=== PATIENT | male | born 1955 | race Two or more races ===

== ENCOUNTER 2019-08-06 09:40 | Inpatient (IN) | payer OTHER ==
[~2019-08-06] VITALS: Ht 177.8 cm; Wt 80.8 kg
[2019-08-06] MEDS ORDERED: SODIUM CHLORIDE 0.9% 1,000 ML IV ONE ×2 (10:58)
[2019-08-06 11:11] LABS: Urine Bacteria NONE SEEN /hpf (None Seen); Urine Blood Negative /uL (Negative); Urine Mucus FEW (None Seen); Urine Specific Gravity 1.016 (1.001-1.035); Urine WBC 3 /hpf (0 - 3)
[2019-08-06 11:36] LABS: Basophils # (auto) 0 10 ^3/uL (0-0.2); Basophils % (auto) 0.2 % (0.0-2.0); Eosinophils # (auto) 0 10 ^3/uL (0-0.8); Eosinophils % (auto) 0.3 % (0.0-7.0); Hematocrit 43.4 % (41.0-53.0); Hemoglobin 14.6 g/dL (13.5-17.5); Lymphocytes # (auto) 0.9 10 ^3/uL (0.4-5.4); Lymphocytes % (auto) 7.1 % (10.0-50.0); Mean Corpuscular Hemoglobin 29.1 pg (28.0-32.0); Mean Corpuscular Hgb Conc. 33.7 g/dL (32.0-36.0); Mean Corpuscular Volume 86.2 fL (80.0-100.0); Monocytes # (auto) 0.3 10 ^3/uL (0-1.3); Monocytes % (auto) 2.9 % (0.0-12.0); Neutrophils # (auto) 10.8 10 ^3/uL (1.6-8.6); Neutrophils % (auto) 89.5 % (37.0-80.0); Platelet Count (auto) 183 10^3/uL (140-450); Red Blood Cells 5.03 10^6/uL (4.5-5.90); Red Cell Distribution Width 12.8 % (11.8-14.3); White Blood Cell 12.1 10^3/uL (4.4-10.8)
[2019-08-06 11:55] LABS: Albumin 3.6 g/dL (3.4-5.0); Anion Gap 7 (5-15); Blood Urea Nitrogen 11 mg/dL (7-18); Calcium 7.9 mg/dL (8.5-10.1); Carbon Dioxide 25 mmol/L (21-32); Chloride 105 mmol/L (98-107); Glucose 206 mg/dL (74-106); Potassium 3.5 mmol/L (3.5-5.1); Sodium 137 mmol/L (136-145)
[2019-08-06] MEDS ORDERED: AZITHROMYCIN 500MG/ 250ML 250 ML IV ONE (12:00)
[2019-08-06] MEDS ORDERED: cefTRIAXone 1GM/50ML D5W 50 ML IV ONE (12:00)
[2019-08-06 12:06] LABS: Alanine Aminotransferase 32 U/L (16-61); Alkaline Phosphatase 75 U/L (45-117); Aspartate Aminotransferase 14 U/L (15-37); BUN/Creatinine Ratio 15.5; Bilirubin, Total 0.4 mg/dL (0.2-1.0); GFR African American 144 mL/min; GFR Non-African American 119 mL/min; Total Protein 7.3 g/dL (6.4-8.2)
[2019-08-06] MEDS ORDERED: NITROGLYCERIN 0.4 MG SL TAB SL PRN (13:15)
[2019-08-06] MEDS ORDERED: ACETAMINOPHEN 500 MG TAB PO PRN (13:15)
[2019-08-06] MEDS ORDERED: DEXTROSE (50%) 50ML SYRG IV PRN (13:15)
[2019-08-06] MEDS ORDERED: ONDANSETRON HCL 4 MG/2 ML VIAL IV PRN (13:15)
[2019-08-06] MEDS ORDERED: HYDROcodone-ACET 5/325MG TAB PO PRN (13:15)
[2019-08-06] MEDS ORDERED: MORPHINE SULF INJ 2 MG/ML SYRINGE 1ML IV PRN ×2 (13:15)
[2019-08-06 13:44] LABS: CRP High Sensitivity 0.05 mg/dL (< 0.3)
[2019-08-06 14:00] VITALS: BP 150/81
[2019-08-06] MEDS: SODIUM CHLORIDE 0.9% 1,000 ML IV SCH (14:00)
--- NOTE | 2019-08-06 17:08 | NUR ---
Patient arrived from ER. Alert and oriented. patient oriented to room and call light.
[2019-08-06] MEDS: ACCU-CHEK COMFORT CURVE STRIP VI SCH ×2 (17:19→21:41)
[2019-08-06] MEDS: InsuLIN REG 1unit/0.01ml Soln (100units/ml) SC SCH ×2 (17:20→21:40)
[2019-08-06 17:29] VITALS: BP 150/81
[2019-08-06] MEDS: IPRATROPIUM BROM 0.5 MG/2.5ML INH SOL NEB SCH (18:29)
[2019-08-06] MEDS: ALBUTEROL SULF 2.5 MG/0.5ML(0.5%) NEB SOLN NEB SCH (18:29)
--- NOTE | 2019-08-06 19:40 | NUR ---
Opening Shift Note Assumed care of patient, awake and alert x4. No S/S of distress/SOB or pain. Instructed on POC and to call for assist PRN. Call light is within reach, side rails up x2, bed is in the lowest position. Will continue to monitor for changes Q1hr and PRN.
[2019-08-06 22:00] VITALS: BP 148/78
[2019-08-06] MEDS ORDERED: ATORVASTATIN 20 MG TAB PO SCH (22:00)
[2019-08-07] MEDS: SODIUM CHLORIDE 0.9% 1,000 ML IV SCH ×2 (00:48→09:03)
[2019-08-07 05:00] VITALS: BP 153/85
[2019-08-07] MEDS: InsuLIN REG 1unit/0.01ml Soln (100units/ml) SC SCH ×2 (06:29→11:51)
[2019-08-07] MEDS: ACCU-CHEK COMFORT CURVE STRIP VI SCH ×2 (06:31→11:31)
[2019-08-07] MEDS: IPRATROPIUM BROM 0.5 MG/2.5ML INH SOL NEB SCH ×3 (06:35→12:00)
[2019-08-07] MEDS: ALBUTEROL SULF 2.5 MG/0.5ML(0.5%) NEB SOLN NEB SCH ×3 (06:35→12:00)
--- NOTE | 2019-08-07 06:37 | NUR ---
RT NOTE: PT. REFUSED BREATHING TX. AT THIS TIME. PT. STATES HE DOESN'T FEEL LIKE HE NEEDS IT AND THAT WHEN HE TOOK THE BREATHING TX. YESTERDAY HE FELT LIKE IT WAS HARDER FOR HIM TO BREATH. NO SIGNS OF RESPIRATORY DISTRESS AND PT. DENIES ANY SOB. PT. HR 74, RR 18, POX 97% R/A. PT. AWARE OF TIME OF NEXT SCHEDULED BREATHING TX.
[2019-08-07 07:44] LABS: Basophils # (auto) 0 10 ^3/uL (0-0.2); Basophils % (auto) 0.4 % (0.0-2.0); Eosinophils # (auto) 0.1 10 ^3/uL (0-0.8); Lymphocytes # (auto) 1.4 10 ^3/uL (0.4-5.4); Mean Corpuscular Hemoglobin 29.4 pg (28.0-32.0); Mean Corpuscular Hgb Conc. 34.1 g/dL (32.0-36.0); Monocytes # (auto) 0.3 10 ^3/uL (0-1.3); Monocytes % (auto) 4.4 % (0.0-12.0); Neutrophils % (auto) 73.2 % (37.0-80.0); Nucleated Red Blood Cells % 0.1 %; Platelet Count (auto) 196 10^3/uL (140-450); Red Blood Cells 4.76 10^6/uL (4.5-5.90); Red Cell Distribution Width 12.8 % (11.8-14.3); White Blood Cell 6.8 10^3/uL (4.4-10.8)
[2019-08-07 08:03] LABS: Potassium 3.6 mmol/L (3.5-5.1)
[2019-08-07 08:11] LABS: BUN/Creatinine Ratio 13.8; Calcium 8.6 mg/dL (8.5-10.1)
[2019-08-07 09:00] VITALS: BP 164/90
[2019-08-07] MEDS ORDERED: cefTRIAXone 1GM/50ML D5W 50 ML IV SCH (09:00)
[2019-08-07] MEDS ORDERED: FAMOTIDINE 20 MG TAB PO SCH (10:00)
[2019-08-07] MEDS ORDERED: LISINOPRIL 10 MG TAB PO SCH (10:00)
[2019-08-07] MEDS ORDERED: AZITHROMYCIN 500MG/ 250ML 250 ML IV SCH (10:00)
--- NOTE | 2019-08-07 12:09 | NUR ---
Autumn (daughter) updated through the phone, after correct password provided. All questions answered.
--- NOTE | 2019-08-07 12:29 | NUR ---
RT NOTE: PT. REFUSED BREATHING TX. AT THIS TIME. PT. DENIES ANY SOB. PT. HR 78, RR 16, POX 97% R/A. PT. AWARE TO NOTIFY RN IF BREATHING TX. IS NEEDED.
--- NOTE | 2019-08-07 12:37 | NUR ---
MD BERRY AT BED SIDE DISCUSSING POC WITH PATIENT. PATIENT VERBALIZES UNDERSTANDING.
[2019-08-07 13:00] VITALS: BP 148/87
[2019-08-07] MEDS ORDERED: AZIT500T66 PO (13:41)
[2019-08-07 14:52] VITALS: BP 148/87
== END 2019-08-07 16:30 | disposition home or self-care (01) | DRG 689 ==
LOC: EDBD 09:40 → ER 09:40 → EDSEX 09:40 → TELE 09:41 → TELE-WESTW 17:07
PROVIDERS: ADMIT Nurse Practitioner Acute Care; ATTEND Internal Medicine
DX: N30.00 Acute cystitis without hematuria (principal); J18.9 Pneumonia, unspecified organism; D35.01 Benign neoplasm of right adrenal gland; E11.9 Type 2 diabetes mellitus without complications; E27.8 Other specified disorders of adrenal gland; E78.5 Hyperlipidemia, unspecified; I10 Essential (primary) hypertension; K44.9 Diaphragmatic hernia without obstruction or gangrene; N20.0 Calculus of kidney; N32.0 Bladder-neck obstruction; N40.0 Benign prostatic hyperplasia without lower urinary tract symptoms; Z79.84 Long term (current) use of oral hypoglycemic drugs; Z79.899 Other long term (current) drug therapy
CPT/HCPCS: 36415; 71045; 74176; 80048; 80053; 81001; 82088; 82533; 82728; 82962; 83036; 83605; 83615; 84484; 85025; 85379; 86141; 87040; 94640; G0378; J0696; J1815